=== PATIENT | female | born 1965 | race Caucasian/White ===

== ENCOUNTER 2016-10-21 09:29 | Day surgery (SDC) | payer OTHER ==
[2016-10-21 10:23] VITALS: BMI 23.8
[2016-10-21] MEDS ORDERED: PROPOFOL 20 ML ONE (11:16)
[2016-10-21 12:02] VITALS: TEMP 97.5
[2016-10-21 13:02] VITALS: BP 118/64; PULSE 61
--- NOTE | 2016-10-22 12:21 | PATH ---
Surgical Pathology Report Patient Name: MARIA C GONZALEZ [facility]. Rec. #: [id number] /Age/Gender: 1965 (Age: 50) / F Account: [id number] Location: [facility] Taken: 10/21/2016 Received: 10/21/2016 Reported: 10/22/2016 Physicians: [place] Bass M.D. Specimen(s) Received A: BX DUODENUM B: BX ANTRUM C: BX BODY STOMACH D: BX GE JUNCTION Clinical History GERD, nausea Erosive gastritis Final Diagnosis A. DUODENUM, BIOPSY: DUODENAL MUCOSA WITHOUT SIGNIFICANT PATHOLOGIC CHANGES. NO HISTOLOGIC EVIDENCE OF GLUTEN SENSITIVE ENTEROPATHY (CELIAC DISEASE). B. STOMACH, ANTRUM, EROSION, BIOPSY: GASTRIC ANTRAL MUCOSA WITH MODERATE CHRONIC GASTRITIS AND REACTIVE GASTROPATHY WITH FOCAL SURFACE EROSION AND FOVEOLAR HYPERPLASIA. IMMUNOSTAIN FOR H. PYLORI IS NEGATIVE FOR ORGANISMS. C. STOMACH, BODY, BIOPSY: GASTRIC OXYNTIC MUCOSA WITH MODERATE CHRONIC GASTRITIS. IMMUNOSTAIN FOR H. PYLORI IS NEGATIVE FOR ORGANISMS. D. GE JUNCTION, BIOPSY: SQUAMOCOLUMNAR JUNCTIONAL MUCOSA WITH CHRONIC INFLAMMATION AND PROMINENT REFLUX TYPE CHANGES. NO INTESTINAL METAPLASIA (WATKINS'S ESOPHAGUS) IDENTIFIED. Electronically Signed Jean-Paul Wheeler M.D. Gross Description A. Received in formalin, labeled "biopsy duodenum" are 2 warren, irregular portions of soft tissue measuring 0.2 and 0.3 cm in greatest dimension. The specimens are submitted in toto in one cassette. B. Received in formalin, labeled "biopsy antrum erosion" are 2 warren, irregular portions of soft tissue measuring 0.1 and 0.4 cm in greatest dimension. The specimens are submitted in toto in one cassette. C. Received in formalin, labeled "biopsy body of stomach" are 2 warren, irregular portions of soft tissue measuring 0.2 and 0.4 cm in greatest dimension. The specimens are submitted in toto in one cassette. D. Received in formalin, labeled "biopsy GE junction" is a warren, irregular portion of soft tissue measuring 0.3 cm in greatest dimension. The specimen is submitted in toto in one cassette. 10/21/201610/21/2016
== END 2016-10-21 12:50 | disposition home or self-care (01) ==
LOC: JASU-ENDO 09:29
PROVIDERS: ATTEND Internal Medicine Gastroenterology
PROC: 0DB68ZX Excision of Stomach, Via Natural or Artificial Opening Endoscopic, Diagnostic (ICD-10-PCS; 2016-10-21)
PROC: 0DB98ZX Excision of Duodenum, Via Natural or Artificial Opening Endoscopic, Diagnostic (ICD-10-PCS; principal; 2016-10-21 10:00)
DX: K25.9 Gastric ulcer, unspecified as acute or chronic, without hemorrhage or perforation (principal)
CPT/HCPCS: 84703; 88305-TC; 88342-TC